=== PATIENT | female | born 1985 | race Caucasian/White ===

== ENCOUNTER 2016-04-18 05:43 | Day surgery (SDC) | payer MEDICAID ==
[~2016-04-18] VITALS: Ht 170.2 cm; Wt 83.1 kg
[2016-04-18] VITALS (8 sets, daily range): BP systolic 111–124; BP diastolic 51–72; PULSE 65–102; RESP 14–22; Ht 170.2 cm; Wt 83.1 kg
[~2016-04-18 05:43] MED LIST: DIPH25CA6
[2016-04-18 07:35] LABS: BASOPHIL # 0.1 10^3/ul (0.0-0.1); BASOPHILS % 1.7 % (0.0-2.0); EOSINOPHILS % 0.3 % (0.0-7.0); HEMATOCRIT 37.7 % (37.0-47.0); HEMOGLOBIN 13.3 g/dl (12.0-16.0); LYMPHOCYTES # 1.4 10^3/ul (0.8-2.9); LYMPHOCYTES % 21.7 % (15.0-51.0); MEAN CORPUSCULAR HEMOGLOBIN 33.3 pg (29.0-33.0); MEAN CORPUSCULAR HGB CONC 35.2 g/dl (32.0-37.0); MEAN CORPUSCULAR VOLUME 94.6 fl (82.0-101.0); MEAN PLATELET VOLUME 9.3 fl (7.4-10.4); MONOCYTE # 0.4 10^3/ul (0.3-0.9); MONOCYTES % 7.2 % (0.0-11.0); NEUTROPHIL # 4.3 10^3/ul (1.6-7.5); NEUTROPHILS % 69.1 % (39.0-77.0); PLATELET COUNT 227 10^3/UL (140-440); RED BLOOD COUNT 3.99 10^6/ul (4.20-5.40); RED CELL DISTRIBUTION WIDTH 13.2 % (11.5-14.5); UNCORRECTED WBC 6.2 10^3/ul (4.8-10.8); WHITE BLOOD COUNT 6.2 10^3/ul (4.8-10.8)
[2016-04-18 07:41] LABS: INR 1.04; PROTIME 13.6 Sec (12.2-14.2); PT RATIO 1.1
[2016-04-18 07:42] LABS: PARTIAL THROMBOPLASTIN TIME 29.9 Sec (25.0-35.0)
[2016-04-18 07:44] LABS: CREATININE 0.45 mg/dl (0.44-1.00); POTASSIUM 3.9 mmol/L (3.5-5.1)
[2016-04-18 07:45] LABS: CALCIUM 9.1 mg/dl (8.4-10.2)
[2016-04-18 07:58] LABS: CONDITION 1
[2016-04-18] MEDS ORDERED: MEPERIDINE 25 MG INJ IV PRN (08:00)
[2016-04-18] MEDS ORDERED: OXYCODONE/ACETAMINOPHEN (5/325) TAB PO PRN (08:00)
[2016-04-18] MEDS ORDERED: HYDROmorphONE (0.2 MG/ML) 10ML SYG IV PRN ×3 (08:00)
[2016-04-18] MEDS ORDERED: PROCHLORPERAZINE 10 MG INJ IV PRN (08:00)
[2016-04-18] MEDS ORDERED: ONDANSETRON 4 MG INJ IV PRN (08:00)
[2016-04-18] MEDS ORDERED: DIPHENHYDRAMINE 50 MG INJ IV PRN (08:00)
[2016-04-18] MEDS ORDERED: FENTAnyl 50 MCG/ML VIAL IV PRN (08:00)
[2016-04-18] MEDS ORDERED: MIDAZOLAM 1 MG/ML 2 ML INJ ONE (09:15)
--- NOTE | 2016-04-18 09:19 | PDOCDIS ---
Discharge Instructions CONDITION Patient Condition: Good HOME CARE INSTRUCTIONS: Diet Instructions: Regular ACTIVITY: Activity Restrictions: No Sexual Activity Do not Drive Bathing Restrictions: Shower FOLLOW UP/APPOINTMENTS Appointments appointment clinic in one week MARCO ROB MD Apr 18, 2016 09:19
[2016-04-18] MEDS ORDERED: ONDANSETRON 4 MG INJ ONE (09:24)
[2016-04-18] MEDS ORDERED: LIDOCAINE 2% (SDV) 5 ML INJ ONE (09:24)
[2016-04-18] MEDS ORDERED: PROPOFOL 40 ML ONE (09:24)
[2016-04-18] MEDS ORDERED: METOCLOPRAMIDE 10 MG INJ ONE (09:24)
[2016-04-18] MEDS ORDERED: DEXAMETHASONE 4 MG/ML 1 ML INJ ONE (09:25)
[2016-04-18] MEDS ORDERED: CEFAZOLIN 1 GM INJ ONE (09:25)
[2016-04-18] MEDS ORDERED: FENTAnyl 50 MCG/ML VIAL ONE (09:28)
[2016-04-18] MEDS ORDERED: KETOROLAC 30 MG INJ IV PRN (09:30)
[2016-04-18] MEDS ORDERED: IBUPROFEN 600 MG TAB PO PRN (09:30)
[2016-04-18] MEDS ORDERED: OXYTOCIN 10 UNIT INJ ONE (09:32)
[2016-04-18] MEDS ORDERED: EPHEDrine SULFATE 50 MG/5 ML SYG ONE (09:53)
[2016-04-18] MEDS ORDERED: METHYLERGONOVINE 0.2 MG INJ ONE (09:57)
--- NOTE | 2016-04-18 15:51 | OPR ---
DATE OF OPERATION: 04/18/2016 PREOPERATIVE DIAGNOSES: Missed . POSTOPERATIVE DIAGNOSIS: Missed . OPERATION PERFORMED: Dilatation and suction curettage. SURGEON: Marco Rob MD ANESTHESIA: General. ANESTHESIOLOGIST: Dr. Turk. DETAILS OF THE PROCEDURE: Under satisfactory general anesthesia, the patient was prepped and draped and placed in dorsal lithotomy position. Bimanual pelvic exam revealed normal marital introitus, n ormal vagina and cervix multiparous. Uterus 8 to 9 weeks' size. Adnexa not palpable. Weighted spe culum introduced into the vagina. Anterior cervical lip grasped by Jose Manuel tenaculum. Uterine cavity sounded, measured 11 cm. Cervical dilatation further advanced with the John's and Hegar dilators t o #10. A Vacurette #10 was used for suction curettage which was followed with a medium sized sharp curetting starting at 12 o'clock counterclockwise. The entire cavity explored with a medium size sh josie curet and there was no retained products of conception. The patient received 30 units of Pitoci n and 0.2 mg of Methergine IM due to the excess bleeding. ESTIMATED BLOOD LOSS: 200 mL. The patient tolerated procedure well, transferred to recovery room i n a good condition. Dictated By: MARCO ROB MD HF/NTS Conf#: [id number] DID#: [id number]
== END 2016-04-18 11:20 | disposition home or self-care (01) ==
LOC: SDS 05:43
PROVIDERS: ATTEND Obstetrics & Gynecology
DX: O02.1 Missed abortion (principal)
CPT/HCPCS: 59820; 80048; 84703; 85025; 85610; 85730; 86850; 86900; 86901; 88305; J0690; J1100; J2210; J2250; J2405; J2590; J2765; J3010; Z7512; Z7610

== ENCOUNTER 2018-01-05 20:32 | Emergency (ER) | END 2018-01-05 22:47 | disposition home or self-care (01) ==

== ENCOUNTER 2018-01-28 10:30 | Emergency (ER) | END 2018-01-28 12:20 | disposition home or self-care (01) ==